=== PATIENT | female | born 1955 | race Caucasian/White ===

== ENCOUNTER 2021-09-12 19:25 | Emergency (ER) | payer MEDICARE ==
[~2021-09-12 19:25] MED LIST: BENZTROPINE MESY1 MG PO; CELEXA20 MG PO; DULERA 200 MCG8.8 GM INH; DUONEB 2.5-0.5M1 AMP INH; JANUVIA50 MG PO; KLONOPIN0.5 MG PO; LASIX20 MG PO; LEVAQUIN750 MG PO; MEDROL DOSE PACK; METFORMIN HCL500 MG PO; MOBIC7.5 MG PO; OXY-IR 5MG5 MG PO; RISPERDAL 1MG TA1 MG PO; SINGULAIR10 MG PO; VITAMIN E400 UNI3 PO; VYTORIN 10-201 EACH PO; ZEBETA5 MG PO; ZOLPIDEM 5MG TAB5 MG PO
[2021-09-12] MEDS ORDERED: CEPHALEXIN500 MG PO (20:11)
== END 2021-09-12 22:31 | disposition home or self-care (01) ==
LOC: FER 19:25
DX: S61.211A Laceration without foreign body of left index finger without damage to nail, initial encounter (principal); Z88.5 Allergy status to narcotic agent